=== PATIENT | female | born 1965 | race Caucasian/White ===

== ENCOUNTER 2018-08-08 08:06 | Day surgery (SDC) | payer OTHER, MEDICARE ==
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
[~2018-08-08 08:06] MED LIST: ACETAMINOPHEN 1,000 MG/100 ML BTL IV ONE; CEFAZOLIN 2 Gram 2 GM/50 ML BAG IVPB ONE; FAMOTIDINE 20MG TABLET PO ONE; MECLIZINE 25 MG TABLET PO ONE; METOCLOPRAMIDE 10 MG TABLET PO ONE
[2018-08-08] MEDS ORDERED: LIDOCAINE 2% MDV (20MG/ML) 20ML VIAL IV ONE (08:07)
[2018-08-08] MEDS ORDERED: BUPIVACAINE 0.5% W/EPI MPF 30 ML VIAL IVP ONE (08:07)
[2018-08-08] MEDS ORDERED: FENTANYL PF 100MCG/2ML VIAL IV ONE ×2 (08:07)
[2018-08-08] MEDS ORDERED: PROPOFOL 10 MG/ML VIAL IV ONE (08:07)
[2018-08-08] MEDS ORDERED: LIDOCAINE 1% W/EPI 1:200,000 MPF 30ML SQ ONE (08:07)
[2018-08-08] MEDS ORDERED: CEFAZOLIN 1G VIAL IM ONE (08:07)
[2018-08-08] MEDS ORDERED: MIDAZOLAM HCL 2MG/2ML VIAL IV ONE (08:07)
[2018-08-08] MEDS ORDERED: OXYCODONE/APAP 10MG-325MG TABLET PO ONE (08:07)
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
--- NOTE | 2018-08-09 16:42 | RADIOLOGY REPORT ---
DATE: 08/08/2018. EXAM: SINGLE VIEW OF THE CERVICAL SPINE. HISTORY: CERVICAL RADICULOPATHY. TECHNIQUE: AP view of the cervical spine. FINDINGS: AP view of the spine is obtained. The patient has undergone placement of a cervical epidural stimulator. The cephalad margin of the stimulator lies at approximately the mid body of C2. There is no evidence of acute, complicating process. The visualized chest structures are intact, allowing for technique. IMPRESSION: SATISFACTORY POSTPROCEDURAL CERVICAL SPINE. JOB NUMBER: [id number] [facility]
== END 2018-08-08 12:18 | disposition home or self-care (01) ==
LOC: SUR 08:06
PROVIDERS: ATTEND Pain Medicine Interventional Pain Medicine
DX: M54.12 Radiculopathy, cervical region (principal); G62.9 Polyneuropathy, unspecified
CPT/HCPCS: 63650; 63685; 01936; 85002; 72020; J3010; J0690; C1778; C1787; C1820